=== PATIENT | male | born 1950 | race Two or more races ===

== ENCOUNTER 2025-05-19 08:51 | Outpatient (OUT) | payer MEDICARE, SELFPAY ==
--- OUTSIDE RECORDS SUMMARY | 2025-05-11 10:30 | XMS_ITS | Encounter Summary ---
Author Organization [facility] Address [address] [facility] [place] [address] Care Team Providers Care Hat Lining Blocker Name Role Phone Mell Lagos MD Primary Care Provider [phone] Tamara Tejada LPN Unavailable Mell Lagos MD Unavailable Reason for Referral * Imaging (Routine) - AuthorizedSpecialtyDiagnoses / ProceduresReferred By ContactReferred To ContactRadiology Diagnoses Intermittent atrial fibrillation (HCC) Procedures Transthoracic Echo (TTE) Complete Mell Lagos MD [address] [place] [address] Phone: tel: fax: [facility] [address] [place] [address] Phone: tel: fax: Referral IDStatusReasonStart DateExpiration DateVisits RequestedVisits [id number] Perform Procedure / Reason for Visit * ReasonCommentsDiabetesLast 7.2 Encounter Details DateTypeDepartmentCare Team (Latest Contact Info)Jqvzbeniyze92/13/2025 10:30 AM EDTOffice Visit [facility] [address] [place] [address] Mell Lagos MD [address] [address] 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 (Primary Dx); Type 2 diabetes mellitus with diabetic peripheral angiopathy without gangrene, with long-term current use of insulin (HCC); Type 2 diabetes mellitus without complication, with long-term current use of insulin (HCC); Intermittent atrial fibrillation (HCC) Social History Tobacco UseTypesPacks/DayYears UsedDateSmoking Tobacco: NeverSmokeless Tobacco: NeverAlcohol UseStandard Drinks/WeekCommentsNever0 (1 standard drink = 0.6 oz pure alcohol)B1300 Health LiteracyAnswerDate RecordedHow often do you need to have someone help you when you read instructions, pamphlets, or other written material from your doctor or pharmacy?Never08/11/2024Humiliation, Afraid, Rape, and Kick questionnaireAnswerDate RecordedWithin the last year, have you been afraid of your partner or ex-partner?No04/30/2023Within the last year, have you been humiliated or emotionally abused in other ways by your partner or ex-partner?No04/30/2023Within the last year, have you been kicked, hit, slapped, or otherwise physically hurt by your partner or ex-partner?No04/30/2023Within the last year, have you been raped or forced to have any kind of sexual activity by your partner or ex-partner?No04/30/2023Social Connection and Isolation Panel AnswerDate RecordedIn a typical week, how many times do you talk on the phone with family, friends, or neighbors?More than three times a week08/11/2024How often do you get together with friends or relatives?Once a week08/11/2024How often do you attend yarsanism or pentecostal services?Patient upipuapz18/13/2025Do you belong to any clubs or organizations such as yarsanism groups, unions, fraternal or athletic groups, or school groups?Yes08/11/2024How often do you attend meetings of the clubs or organizations you belong to?More than 4 times per year08/11/2024re you , , , , never , or living with a partner?Gtzjhaj9508/11/2024UDIT-CAnswerDate RecordedQ1: How often do you have a drink containing alcohol?Never08/11/2024Q2: How many drinks containing alcohol do you have on a typical day when you are drinking?Patient does not drink08/11/2024Q3: How often do you have six or more drinks on one occasion?Never08/11/2024Overall Financial Resource Strain (CARDIA)AnswerDate RecordedHow hard is it for you to pay for the very basics like food, housing, medical care, and heating?Not very hard08/11/2024PHQ-2AnswerDate RecordedPatient Health Questionnaire-2 [id number] [place] of Occupational Health - Occupational Stress QuestionnaireAnswerDate RecordedDo you feel stress - tense, restless, nervous, or anxious, or unable to sleep at night because your mind is troubled all the time - these days?Not at all08/11/2024Exercise Vital SignAnswerDate RecordedOn average, how many days per week do you engage in moderate to strenuous exercise (like a brisk walk)?2 days08/11/2024On average, how many minutes do you engage in exercise at this level?30 min08/11/2024Hunger Vital SignAnswerDate RecordedWithin the past 12 months, you worried that your food would run out before you got the money to buymore.Never true08/11/2024 Within the past 12 months, the food you bought just didn't last and you didn't have money to get more.Never true08/11/2024PRAPARE - TransportationAnswerDate RecordedIn the past 12 months, has lack of transportation kept you from medical appointments or from getting medications?No08/11/2024In the past 12 months, has lack of transportation kept you from meetings, work, or from getting things needed for daily living?No08/11/2024Housing Stability Vital SignAnswerDate RecordedIn the last 12 months, was there a time when you were not able to pay the mortgage or rent on time?No04/30/2023Number of Places Lived in the Last Year Not on file04/30/2023In the last 12 months, was there a time when you did not have a steady place to sleep or slept in [place] (including now)?No04/30/2023 Housing Stability Vital SignAnswerDate RecordedIn the last 12 months, was there a time when you were not able to pay the mortgage or rent on time?No08/11/2024In the past 12 months, how many times have you moved where you were living?0 08/11/2024t any time in the past 12 months, were you homeless or living in a [facility] (including now)?No08/11/2024Sex and Gender InformationValueDate Recorded Sex Assigned at BirthNot on fileLegal YcbUnec5310/11/2022 11:52 PM EDTGender IdentityNot on fileSexual OrientationNot on filedocumented as of this encounter Last Filed Vital Signs Vital SignReadingTime TakenCommentsBlood Ctqeoqrn847/8805/11/2025 10:30 AM EDT Ycvhl963105/11/2025 10:30 AM EDTTemperature--Respiratory Rate--Oxygen Saturation 97%05/11/2025 10:30 AM EDTInhaled Oxygen Concentration--Ichfpq746 kg (229 lb) 05/11/2025 10:30 AM TQBRlyvrv371.2 cm (5' 7 )05/11/2025 10:30 AM EDTBody Mass Index35.8705/11/2025 10:30 AM EDTdocumented in this encounter Functional Status * Over the past 2 weeks, how often have you been bothered by any of the following problems?QuestionAnswerDate of AssessmentAuthorLittle interest or pleasure in doing thingsNot at all05/11/2025 7:28 AM Adelaide Sesay MA Feeling down, depressed, or hopelessNot at all05/11/2025 7:28 AM Adelaide Sesay MAPatient Health Questionnaire-2 Eaiqb089 7:28 AM Adelaide Sesay MA documented as of this encounter Progress Notes * Mell Lagos MD - 05/11/2025 10:57 AM EDTAssociated Problem(s): Intermittent atrial fibrillation (HCC) Irregular HR EKG confirms Atrial Fibrillation D/W patient the need for anticoagulation Consider Metoprolol Consider Cardiology mapping/Cardioversion * Mell Lagos MD - 05/11/2025 10:54 AM EDTAssociated Problem(s): 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 HPI Diabetes Additional comments: Last 7.2 Last edited by Adelaide Almaguer MA on 05/11/2025 7:28 AM. Subjective Patient ID: Sunday Muller is a 75 y.o. male who presents for Diabetes (Last 7.2). Pt no longer itches , did see derm for this Pt sugars been avg is 135 for monthly Diabetes He presents for his follow-up diabetic visit. He has type 2 diabetes mellitus. No MedicAlert identification noted. The initial diagnosis of diabetes was made 3 years ago. His disease course has been improving. Pertinent negatives for hypoglycemia include no dizziness, headaches, nervousness/anxiousness or speech difficulty. There are no diabetic associated symptoms. Pertinent negatives for diabetes include no chest pain. There are no hypoglycemic complications. Symptoms are improving. There areno diabetic complications. Risk factors for coronary artery disease include male sex. Current diabetic treatment includes intensive insulin program and oral agent (dual therapy). He is compliant with treatment all of the time. He is following a diabetic diet. Meal planning includes avoidance of concentrated sweets. He has not had a previous visit with a dietitian. He rarely participates in exercise. His home blood glucose trend is decreasing steadily. He does not see a certified medical technician.Eye exam is current. Over the past 2 weeks, how often have you been bothered by any of the following problems? Little interest or pleasure in doing things: Not at all Feeling down, depressed, or hopeless: Not at all Patient Health Questionnaire-2 Score: 0 Current Outpatient Medications on File Prior to Visit Medication Sig Dispense Refill aspirin 81 MG chewable tablet Chew 1 tablet (81 mg) Daily 30 tablet 11 atorvastatin (Lipitor) 40 MG tablet Take 1 tablet by mouth once daily 90 tablet 0 Continuous Glucose Sensor (Dexcom G7 Sensor) misc Apply 1 Cartridge topically Daily 3 each 11 Continuous Glucose Sensor (FreeStyle Molly 3 Plus Sensor) misc 1 Device every 14 (fourteen) days 6 each 3 ezetimibe (Zetia) 10 MG tablet Take 1 tablet (10 mg) by mouth Daily 100 tablet 3 Farxiga 10 MG TAKE 1 TABLET BY MOUTH EVERY DAY FOR 90 DAYS 90 tablet 4 levothyroxine (Synthroid, Levoxyl) 50 MCG tablet Take 1 tablet (50 mcg) by mouth in the morning. Take before meals. 100 tablet 3 losartan (Cozaar) 25 MG tablet Take 1 tablet (25 mg) by mouth Daily 100 tablet 3 rivaroxaban (Xarelto) 20 MG tablet Take 1 tablet (20 mg) by mouth 1 (one) time each day at the sametime 100 tablet 3 Semaglutide,0.25 or 0.5MG/DOS, (Ozempic, 0.25 or 0.5 MG/DOSE,) 2 MG/3ML solution pen-injector INJECT 0.5MG SUBCUTANEOUSLY ONCE A WEEK 3 mL 2 [DISCONTINUED] Basaglar KwikPen 100 UNIT/ML pen DIAL AND INJECT 30 UNITS UNDER THE SKIN EVERY MORNING. MAX DAILY DOSE IS 30 UNITS. 45 mL 0 [DISCONTINUED] insulin aspart (NovoLOG FLEXPEN) 100 UNIT/ML pen Inject 8 Units under the skin in the morning and 8 Units before bedtime. [DISCONTINUED] permethrin (Elimite) 5 % cream Apply from the neck down to the soles of the feet. Rub in completely. Leave the medicine on your skin for 8 to 14 hours, then wash it off completely. Repeat in 1 week. 7 day supply. 120 g 4 No current facility-administered medications on file prior to visit. I have reviewed and reconciled the history and medication list with the patient today. Allergies Allergen Reactions Penicillin G Hives Social History Tobacco Use Smoking status: Never Smokeless tobacco: Never Substance Use Topics Alcohol use: Never Drug use: Never No family history on file. Past Medical History: Diagnosis Date Allergic Atrial fibrillation (HCC) 01/16/2023 Cataract Essential hypertension 01/16/2023 Hypercholesterolemia 01/16/2023 Hypothyroidism 01/16/2023 Peripheral vascular disease 01/16/2023 Type 2 diabetes mellitus without complication (HCC) 01/16/2023 No Tobacco use Follow ADA 1800 diet low carbohydrate Continue Med Compliance Goal LDL less than 100Goal BP 130/80 Goal HgbA1c < 7.0% Monitor Feet, monitor for infection Needs Exercise Yearly eye exams Prior to your visit today we reviewed your chart and outlined testing and treatment needed foryour care. Reviewed poissble complications of diabetes including, loss of vision, kidney failure and in Uncontrolled diabetes mellitus with hyperglycemia (HCC) 01/16/2023 Past Surgical History: Procedure Laterality Date CHOLECYSTECTOMY 2005 Visit Vitals BP 138/88 Pulse 80 Ht 5' 7 Wt 229 lb SpO2 97% BMI 35.87 kg/m?? Smoking Status Never BSA 2.22 m?? Review of Systems Constitutional: Negative for chills and fever. Respiratory: Negative for shortness of breath. Cardiovascular: Negative for chest pain. Gastrointestinal: Negative for constipation, diarrhea, nausea and vomiting. Musculoskeletal: Negative for back pain and gait problem. Neurological: Negative. Negative for dizziness, facial asymmetry, speech difficulty and headaches. Psychiatric/Behavioral: The patient is not nervous/anxious. Objective Physical Exam Vitals reviewed. Constitutional: Appearance: Normal appearance. He is obese. HENT: Head: Normocephalic. Neck: Vascular: No carotid bruit. Cardiovascular: Rate and Rhythm: Normal rate. Rhythm irregular. Pulses: Normal pulses. Pulmonary: Effort: Pulmonary effort is normal. Breath sounds: Normal breath sounds. Musculoskeletal: Right lower leg: Edema present. Left lower leg: Edema present. Skin: Comments: Chronic Venous Stasis changes Neurological: General: No focal deficit present. Mental Status: He is alert and oriented to person, place, and time. Psychiatric: Mood and Affect: Mood normal. Office Visit on 05/11/2025 Component Date Value Ref Range Status Hemoglobin A1C 05/11/2025 7.2 Final Assessment/Plan Problem List Items Addressed This Visit Intermittent atrial fibrillation (HCC) Irregular HR EKG confirms Atrial Fibrillation D/W patient the need for anticoagulation Consider Metoprolol Consider Cardiology mapping/Cardioversion Relevant Medications apixaban (Eliquis) 5 MG tablet Other Relevant Orders Transthoracic Echo (TTE) Complete Type 2 diabetes mellitus without complications (HCC) Relevant Medications insulin glargine (Basaglar KwikPen) 100 UNIT/ML pen insulin aspart (NovoLOG FLEXPEN) 100 UNIT/ML pen Type 2 diabetes mellitus with diabetic peripheral angiopathy without gangrene (HCC) Relevant Orders POCT Glycated hemoglobin, total (Completed) 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 documented in this encounter Plan of Treatment DateTypeDepartmentCare Team (Latest Contact Info)Gkcldrspzom63/13/2026 10:30 AM ESTOffice Visit [facility] [address] [facility] [address] [place] [address] Mell Lagos MD [address] [facility] [address] [place] [address] NameTypePriorityAssociated DiagnosesOrder ScheduleTransthoracic Echo (TTE) CompleteEchocardiographyRoutine Intermittent atrial fibrillation (HCC) Expected: 05/11/2025 (Approximate), Expires: 05/11/2027documented as of this encounter Procedures Procedure NamePriorityDate/TimeAssociated DiagnosisCommentsPOCT GLYCATED HEMOGLOBIN, NDDOTJhpuvzv49/13/2025 10:43 AM EDT Type 2 diabetes mellitus with diabetic peripheral angiopathy without gangrene, with long-term current use of insulin (HCC) documented in this encounter Results * (ABNORMAL) POCT Glycated hemoglobin, total (05/11/2025 10:43 AM EDT)Component ValueRef RangeTest MethodAnalysis TimePerformed AtPathologist Signature Hemoglobin A1C7.2Specimen (Source)Anatomical Location / LateralityCollection Method / VolumeCollection TimeReceived AgwoPpwoc33/13/2025 10:43 AM EDT Narrative Authorizing ProviderResult TypeResult StatusMell Lagos [facility] TEST ENTER/EDIT ORDERABLESFinal Result documented in this encounter Visit Diagnoses Diagnosis 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 [address] [place] [address] PCP - GeneralFamily Medicine01/15/23 Mell Lagos MD [address] [facility] [address] [place] [address] PCP - [place]07/30/2511 Tamara Tejada LPN [address] [facility] [address] [place] [address] 10/17/24documented as of this encounter
--- OUTSIDE RECORDS SUMMARY | 2025-05-19 08:58 | XMS_ITS | Clinical Summary ---
Author Organization [facility] Healthcare Address [address] [facility] [place] [address] Care Team Providers Care Bar Attendant Name Role Phone Mell Lagos MD Primary Care Provider [phone] Tamara Tejada LPN Unavailable Mell Lagos MD Unavailable Allergies Active AllergyReactionsCriticalityNoted DateCommentsPenicillin QSfons4201/16/2023 Medications MedicationSigDispense QuantityRefillsLast FilledStart DateEnd DateStatus rivaroxaban (Xarelto) 20 MG tablet Indications:Type 2 diabetes mellitus without complication, with long-term current use of insulin (HCC)Take 1 tablet (20 mg) by mouth 1 (one) time each day at the same time 100 tablet 4Active Farxiga 10 MG Indications:Type 2 diabetes mellitus without complications (HCC)TAKE 1 TABLET BY MOUTH EVERY DAY FOR 90 DAYS 90 tablet 4Active Continuous Glucose Sensor (FreeStyle Molly 3 Plus Sensor) [facility] Indications:Uncontrolled type 2 diabetes mellitus with hyperglycemia (HCC)1 Device every 14 (fourteen) days 6 each 5Active ezetimibe (Zetia) 10 MG tablet Indications:Type 2 diabetes mellitus without complication, with long-term current use of insulin (HCC)Take 1 tablet (10 mg) by mouth Daily 100 tablet 3045Active aspirin 81 MG chewable tablet Indications:Type 2 diabetes mellitus without complication, with long-term current use of insulin (HCC)Chew 1 tablet (81 mg) Daily 30 tablet [id number] Continuous Glucose Sensor (Dexcom G7 Sensor) [facility] Indications:Type 2 diabetes mellitus without complication, with long-term current use of insulin ([facility])Apply 1 Cartridge topically Daily 3 each 5Active levothyroxine (Synthroid, Levoxyl) 50 MCG tablet Indications:Acquired hypothyroidismTake 1 tablet (50 mcg) by mouth in the morning. Take before meals. 100 tablet 5Active losartan (Cozaar) 25 MG tablet Indications:Essential (primary) hypertensionTake 1 tablet (25 mg) by mouth Daily 100 tablet 5Active Semaglutide,0.25 or 0.5MG/DOS, (Ozempic, 0.25 or 0.5 MG/DOSE,) 2 MG/3ML solution pen-injector Indications:Type 2 diabetes mellitus without complication, unspecified whether assisted insulin use ([facility])INJECT 0.5MG SUBCUTANEOUSLY ONCE A WEEK 3 mL 5Active atorvastatin (Lipitor) 40 MG tablet Indications:HypercholesterolemiaTake 1 tablet by mouth once daily 90 tablet 5Active insulin glargine (Basaglar KwikPen) 100 UNIT/ML pen Indications:Type 2 diabetes mellitus without complication, with long-term current use of insulin ([facility])Inject 26 Units under the skin at bedtime 45 mL 5Active insulin aspart (NovoLOG FLEXPEN) 100 UNIT/ML pen Indications:Type 2 diabetes mellitus without complication, with long-term current use of insulin ([facility])Inject 10 Units under the skin in the morning and 10 Units at noon and 10 Units in the evening. Inject with meals. 10 mL 6Active apixaban (Eliquis) 5 MG tablet Indications:Intermittent atrial fibrillation (HCC)Take 1 tablet (5 mg) by mouth in the morning and 1 tablet (5 mg) before bedtime. 60 tablet 5Active Basaglar KwikPen 100 UNIT/ML pen Indications:Type 2 diabetes mellitus without complication, with long-term current use of insulin ([facility])DIAL AND INJECT 30 UNITS UNDER THE SKIN EVERY MORNING. MAX DAILY DOSE IS 30 UNITS. 45 mL Discontinued(Reorder) atorvastatin (Lipitor) 40 MG tablet Indications:HypercholesterolemiaTake 1 tablet (40 mg) by mouth Daily 90 tablet Discontinued insulin aspart (NovoLOG FLEXPEN) 100 UNIT/ML pen Indications:Type 2 diabetes mellitus without complication, with long-term current use of insulin (HCC)Inject 8 Units under the skin in the morning and 8 Units before bedtime.Discontinued(Reorder) permethrin (Elimite) 5 % cream Indications:ScabiesApply from the neck down to the soles of the feet. Rub in completely. Leave the medicine on your skin for 8 to 14 hours, then wash it off completely. Repeat in 1 week. 7 day supply. 120 g Discontinued(Therapy completed) Active Problems ProblemNoted DateDiagnosed DateBleeding from varicose veins of right lower txvptyazx36/13/2025 Assessment & Plan (05/11/2025 10:54 AM EDT): Resolved Traumatic in origin Tendonitis of left rotator cuff02/09/2025 Assessment & Plan (02/09/2025 10:46 AM EDT): Stretching exercises If NB PT Mkbfexy2211/20/2024Type 2 diabetes mellitus with diabetic peripheral angiopathy without fwmvaxgo73/14/2024 Assessment & Plan (02/09/2025 10:37 AM EDT): No Tobacco use Follow ADA 1800 diet low carbohydrate Continue Med Compliance Goal LDL less than 100Goal BP 130/80 Goal HgbA1c < 7.0% Monitor Feet, monitor for infection Needs Exercise Yearly eye exams Prior to your visit today we reviewed your chart and outlined testing and treatment needed foryour care. Reviewed poissble complications of diabetes including, loss of vision, kidney failure and increased risk of heart attacks and stroke. We made recommendations on how to control your blood sugars, and minimize your risk of these complications. We discussed your current barriers to a healthy living and importance of healthy diet and exercise. Improved Assessment & Plan (11/10/2024 8:42 AM EDT): No Tobacco use Follow ADA 1800 diet low carbohydrate Continue Med Compliance Goal LDL less than 100Goal BP 130/80 Goal HgbA1c < 7.0% Monitor Feet, monitor for infection Needs Exercise Yearly eye exams Prior to your visit today we reviewed your chart and outlined testing and treatment needed foryour care. Reviewed poissble complications of diabetes including, loss of vision, kidney failure and increased risk of heart attacks and stroke. We made recommendations on how to control your blood sugars, and minimize your risk of these complications. We discussed your current barriers to a healthy living and importance of healthy diet and exercise. Assessment & Plan (05/12/2024 9:16 AM EDT): Needs Novolog increased Other thrombophilia ([facility])05/12/2024ody mass index (BMI) 35.0-35.9, adult 05/12/2024 Assessment & Plan (08/12/2024 3:23 PM EST): Diet and Exercise Encouraged Assessment & Plan (05/12/2024 9:17 AM EDT): Exercise and Diet Chronic pruritic rash in adult05/12/2024Medicare annual wellness visit, phsbwgympq56/09/2024 Assessment & Plan (11/10/2024 8:51 AM EDT): Colonoscopy every 10 years or Cologuard every 3 years ages 50-75 Flu Vaccine yearly Pneumovax and Prevnar Mammo yearly for women and PSA yearly for men Labs/Screening yearly to rule out Diabetes, Chronic Kidney disease and liver disease Hepatitis Screen forat risk populations Shingles vaccine after65 if indicated Tetanus Vaccine every 10 years Lipids yearly under the age of 75 If Smoking history: one time CT scan of chest and Ultrasound of Aorta to screen for Anuerysm Assessment & Plan (11/06/2023 11:54 AM EDT): Colonoscopy every 10 years or Cologuard every 3 years ages 50-75 Flu Vaccine yearly Pneumovax and Prevnar Mammo yearly for women and PSA yearly for men Labs/Screening yearly to rule out Diabetes, Chronic Kidney disease and liver disease Hepatitis Screen forat risk populations Shingles vaccine after65 if indicated Tetanus Vaccine every 10 years Lipids yearly under the age of 75 If Smoking history: one time CT scan of chest and Ultrasound of Aorta to screen for Anuerysm Yuszhqgx39/09/2024 Assessment & Plan (05/12/2024 9:24 AM EDT): Cannot rule out scabies May need referral to Dermatology Assessment & Plan (02/05/2024 10:19 AM EDT): Hold Atorvastatin for 2 weeks Add Vistaril Needs better sugar control Morbid (severe) obesity due to excess zrfccasc74/06/2023 Assessment & Plan (08/12/2024 3:23 PM EST): Weight loss encouraged Assessment & Plan (05/12/2024 9:16 AM EDT): Weight loss encouraged Assessment & Plan (07/03/2023 10:41 AM EST): This is a chronic medical condition that is stable since last assessment. No changes in treatment are suggested at this time. Continue Current meds. Intermittent atrial uedidijedwvh10/20/2023 Assessment & Plan (05/11/2025 11:10 AM EDT): Irregular HR EKG confirms Atrial Fibrillation D/W patient the need for anticoagulation Consider Metoprolol Consider Cardiology mapping/Cardioversion Assessment & Plan (08/12/2024 3:23 PM EST): This is a chronic medical condition that is stable since last assessment. No changes in treatment are suggested at this time. Continue Current meds. Assessment & Plan (05/12/2024 9:27 AM EDT): On Argentinato Has not seen liquid flavor compounder Assessment & Plan (02/05/2024 10:09 AM EDT): This is a chronic medical condition that is stable since last assessment. No changes in treatment are suggested at this time. Continue Current meds. Assessment & Plan (08/06/2023 10:15 AM EST): On Xarelto This is a chronic medical condition that is stable since last assessment. No changes in treatment are suggested at this time. Continue Current meds. Assessment & Plan (07/03/2023 10:40 AM EST): Hold Xarelto 2 days before dental procedure and resume that evening Hold aspirin today No CVA sxs Assessment & Plan (06/04/2023 9:26 AM EST): No SOB No Tachycardia Assessment & Plan (05/01/2023 9:35 AM EDT): On Xarelto Assessment & Plan (01/29/2023 11:01 AM EDT): Continue Xarelto Essential zflocttbimoy83/20/2023 Assessment & Plan (11/10/2024 8:42 AM EDT): Our specific goals, for your hypertension, is to keep your blood pressure less than 140/90, and theimportance of weight control. We made recommendations on how to control your blood pressure, and minimize your risk of these copmplications. We also discussed your current barriers to a healthy living and importance of healthy diet and exercise. Prior to your visit today we have reviewed your chart and formed a plan to assist with providing you the best possible care. We reviewed the possible complications of hypertension including, stroke, heart failure and kidney impairment. In addition, we discussed your medications, the importance of taking them as prescribed. DASH diet handouts Assessment & Plan (11/06/2023 11:37 AM EDT): Our specific goals, for your hypertension, is to keep your blood pressure less than 140/90, and theimportance of weight control. We made recommendations on how to control your blood pressure, and minimize your risk of these copmplications. We also discussed your current barriers to a healthy living and importance of healthy diet and exercise. Prior to your visit today we have reviewed your chart and formed a plan to assist with providing you the best possible care. We reviewed the possible complications of hypertension including, stroke, heart failure and kidney impairment. In addition, we discussed your medications, the importance of taking them as prescribed. Scint-X handouts Assessment & Plan (08/06/2023 10:09 AM EST): Our specific goals, for your hypertension, is to keep your blood pressure less than 140/90, and theimportance of weight control. We made recommendations on how to control your blood pressure, and minimize your risk of these copmplications. We also discussed your current barriers to a healthy living and importance of healthy diet and exercise. Prior to your visit today we have reviewed your chart and formed a plan to assist with providing you the best possible care. We reviewed the possible complications of hypertension including, stroke, heart failure and kidney impairment. In addition, we discussed your medications, the importance of taking them as prescribed. Tracks.byouts Assessment & Plan (07/03/2023 10:41 AM EST): Our specific goals, for your hypertension, is to keep your blood pressure less than 140/90, and theimportance of weight control. We made recommendations on how to control your blood pressure, and minimize your risk of these copmplications. We also discussed your current barriers to a healthy living and importance of healthy diet and exercise. Prior to your visit today we have reviewed your chart and formed a plan to assist with providing you the best possible care. We reviewed the possible complications of hypertension including, stroke, heart failure and kidney impairment. In addition, we discussed your medications, the importance of taking them as prescribed. Tracks.byouts Assessment & Plan (06/04/2023 9:18 AM EST): Our specific goals, for your hypertension, is to keep your blood pressure less than 140/90, and theimportance of weight control. We made recommendations on how to control your blood pressure, and minimize your risk of these copmplications. We also discussed your current barriers to a healthy living and importance of healthy diet and exercise. Prior to your visit today we have reviewed your chart and formed a plan to assist with providing you the best possible care. We reviewed the possible complications of hypertension including, stroke, heart failure and kidney impairment. In addition, we discussed your medications, the importance of taking them as prescribed. DASH diet handouts Pure hypercholesterolemia, yolsvnrpbko44/20/2023 Assessment & Plan (08/12/2024 3:24 PM EST): This is a chronic medical condition that is stable since last assessment. No changes in treatment are suggested at this time. Continue Current meds. Assessment & Plan (05/12/2024 9:17 AM EDT): This is a chronic medical condition that is stable since last assessment. No changes in treatment are suggested at this time. Continue Current meds. Assessment & Plan (01/29/2023 10:59 AM EDT): Continue Current Meds Qhliijltakrvtu15/20/2023 Assessment & Plan (07/03/2023 10:41 AM EST): This is a chronic medical condition that is stable since last assessment. No changes in treatment are suggested at this time. Continue Current meds. Peripheral vascular disease, xsuwmhbwhqi41/20/2023 Assessment & Plan (05/12/2024 9:16 AM EDT): Needs better glycemic control Assessment & Plan (07/03/2023 10:41 AM EST): This is a chronic medical condition that is stable since last assessment. No changes in treatment are suggested at this time. Continue Current meds. Uncontrolled diabetes mellitus with roqqkcugcpptu05/20/2023 Assessment & Plan (08/12/2024 3:23 PM EST): No Tobacco use Follow ADA 1800 diet low carbohydrate Continue Med Compliance Goal LDL less than 100Goal BP 130/80 Goal HgbA1c < 7.0% Monitor Feet, monitor for infection Needs Exercise Yearly eye exams Prior to your visit today we reviewed your chart and outlined testing and treatment needed foryour care. Reviewed poissble complications of diabetes including, loss of vision, kidney failure and increased risk of heart attacks and stroke. We made recommendations on how to control your blood sugars, and minimize your risk of these complications. We discussed your current barriers to a healthy living and importance of healthy diet and exercise. Assessment & Plan (05/12/2024 9:15 AM EDT): No Tobacco use Follow ADA 1800 diet low carbohydrate Continue Med Compliance Goal LDL less than 100Goal BP 130/80 Goal HgbA1c < 7.0% Monitor Feet, monitor for infection Needs Exercise Yearly eye exams Prior to your visit today we reviewed your chart and outlined testing and treatment needed foryour care. Reviewed poissble complications of diabetes including, loss of vision, kidney failure and increased risk of heart attacks and stroke. We made recommendations on how to control your blood sugars, and minimize your risk of these complications. We discussed your current barriers to a healthy living and importance of healthy diet and exercise. Assessment & Plan (02/05/2024 10:08 AM EDT): No Tobacco use Follow ADA 1800 diet low carbohydrate Continue Med Compliance Goal LDL less than 100Goal BP 130/80 Goal HgbA1c < 7.0% Monitor Feet, monitor for infection Needs Exercise Yearly eye exams Prior to your visit today we reviewed your chart and outlined testing and treatment needed foryour care. Reviewed poissble complications of diabetes including, loss of vision, kidney failure and increased risk of heart attacks and stroke. We made recommendations on how to control your blood sugars, and minimize your risk of these complications. We discussed your current barriers to a healthy living and importance of healthy diet and exercise. Assessment & Plan (07/03/2023 10:40 AM EST): No Tobacco use Follow ADA 1800 diet low carbohydrate Continue Med Compliance Goal LDL less than 100Goal BP 130/80 Goal HgbA1c < 7.0% Monitor Feet, monitor for infection Needs Exercise Yearly eye exams Prior to your visit today we reviewed your chart and outlined testing and treatment needed foryour care. Reviewed poissble complications of diabetes including, loss of vision, kidney failure and increased risk of heart attacks and stroke. We made recommendations on how to control your blood sugars, and minimize your risk of these complications. We discussed your current barriers to a healthy living and importance of healthy diet and exercise. Assessment & Plan (06/04/2023 9:19 AM EST): Doing Mounjaro Could not get Victoza Assessment & Plan (05/01/2023 9:28 AM EDT): No Tobacco use Follow ADA 1800 diet low carbohydrate Continue Med Compliance Goal LDL less than 100Goal BP 130/80 Goal HgbA1c < 7.0% Monitor Feet, monitor for infection Needs Exercise Yearly eye exams Prior to your visit today we reviewed your chart and outlined testing and treatment needed foryour care. Reviewed poissble complications of diabetes including, loss of vision, kidney failure and increased risk of heart attacks and stroke. We made recommendations on how to control your blood sugars, and minimize your risk of these complications. We discussed your current barriers to a healthy living and importance of healthy diet and exercise. Assessment & Plan (01/29/2023 11:00 AM EDT): On Basaglar and Victoza Type 2 diabetes mellitus without owskatgjenpoz13/20/2023 Overview (11/10/2024): No Tobacco use Follow ADA 1800 diet low carbohydrate Continue Med Compliance Goal LDL less than 100Goal BP 130/80 Goal HgbA1c < 7.0% Monitor Feet, monitor for infection Needs Exercise Yearly eye exams Prior to your visit today we reviewed your chart and outlined testing and treatment needed foryour care. Reviewed poissble complications of diabetes including, loss of vision, kidney failure and increased risk of heart attacks and stroke. We made recommendations on how to control your blood sugars, and minimize your risk of these complications. We discussed your current barriers to a healthy living and importance of healthy diet and exercise. 8 to 10 units of the Novolog with meals Watch for Hypoglycemia If recurrent of episodes Hypoglycemia then decrease Basaglar Assessment & Plan (11/06/2023 11:36 AM EDT): No Tobacco use Follow ADA 1800 diet low carbohydrate Continue Med Compliance Goal LDL less than 100Goal BP 130/80 Goal HgbA1c < 7.0% Monitor Feet, monitor for infection Needs Exercise Yearly eye exams Prior to your visit today we reviewed your chart and outlined testing and treatment needed foryour care. Reviewed poissble complications of diabetes including, loss of vision, kidney failure and increased risk of heart attacks and stroke. We made recommendations on how to control your blood sugars, and minimize your risk of these complications. We discussed your current barriers to a healthy living and importance of healthy diet and exercise. Assessment & Plan (08/06/2023 10:09 AM EST): No Tobacco use Follow ADA 1800 diet low carbohydrate Continue Med Compliance Goal LDL less than 100Goal BP 130/80 Goal HgbA1c < 7.0% Monitor Feet, monitor for infection Needs Exercise Yearly eye exams Prior to your visit today we reviewed your chart and outlined testing and treatment needed foryour care. Reviewed poissble complications of diabetes including, loss of vision, kidney failure and increased risk of heart attacks and stroke. We made recommendations on how to control your blood sugars, and minimize your risk of these complications. We discussed your current barriers to a healthy living and importance of healthy diet and exercise. Assessment & Plan (01/29/2023 10:59 AM EDT): No Tobacco use Follow ADA 1800 diet low carbohydrate Continue Med Compliance Goal LDL less than 100Goal BP 130/80 Goal HgbA1c < 7.0% Monitor Feet, monitor for infection Needs Exercise Yearly eye exams Prior to your visit today we reviewed your chart and outlined testing and treatment needed foryour care. Reviewed poissble complications of diabetes including, loss of vision, kidney failure and increased risk of heart attacks and stroke. We made recommendations on how to control your blood sugars, and minimize your risk of these complications. We discussed your current barriers to a healthy living and importance of healthy diet and exercise. Encounters DateTypeDepartmentCare EvjiLysnwurwtmu70/14/2025Refill [facility] [place] [address] [address] [place] [address] Mell Lagos MD Type 2 diabetes mellitus without complication, with long-term current use of insulin ([facility])05/12/2025bstract [facility] [place] [address] [place] [address] Mell Lagos MD 05/11/2025 10:30 AM EDTOffice Visit [facility] [place] [address] [place] [address] Mell Lagos MD 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 (Primary Dx); Type 2 diabetes mellitus with diabetic peripheral angiopathy without gangrene, with long-term current use of insulin (HCC); Type 2 diabetes mellitus without complication, with long-term current use of insulin (HCC); Intermittent atrial fibrillation (HCC)05/11/20254718Ljadkk37/09/2025Patient Outreach [facility] [address] [place] [address] Tamara Tejada LPN 05/01/2025Refill [facility] [address] [place] [address] Mell Lagos MD Rmnrmocxplvzqpgzajev61/18/2025bstract [facility] [address] [place] [phone] Mell Lagos MD 04/01/2025Refill [facility] [address] [place] [address] Jayleen Mcfadden, PA Type 2 diabetes mellitus without complication, unspecified whether termite exterminator helper insulin use (HCC)03/25/2025 3:30 PM EDTOffice Visit [facility] [address] [place] [address] Lolita Anne MD Scabies (Primary Dx)03/25/2025amboo flowsheet [facility] [address] [place] [address] Lolita Anne MD 03/25/20258593Kkncar75/19/2025Telephone [facility] [address] [place] [address] Mell Lagos MD 02/17/2025bstract [facility] [address] [place] [address] Mell Lagos MD 02/16/2025bstract [facility] [address] [place] [address] Mell Lagos MD from Last 3 Months Family History RelationNameStatusCommentsFatherDeceasedMotherDeceased Social History Tobacco UseTypesPacks/DayYears UsedDateSmoking Tobacco: NeverSmokeless Tobacco: Never Tobacco Cessation:Counseling Given: Not Answered Alcohol UseStandard Drinks/WeekCommentsNever0 (1 standard drink = 0.6 [...] relatives?Once a week08/11/2024How often do you attend temple or holiness services?Patient tjbtnvan38/13/2025Do you belong to any clubs or organizations such as temple groups, unions, fraternal or athletic groups, or school groups?Yes08/11/2024How often do you attend meetings of the clubs or organizations you belong to?More than 4 times per year08/11/2024re you , , , , never , or living with a partner?Qoajxbg3108/11/2024UDIT-CAnswerDate RecordedQ1: How often do you have a [...] and heating?Not very hard08/11/2024PHQ-2AnswerDate RecordedPatient Health Questionnaire-2 Aucaz526[facility] [place] [facility] - Occupational Stress QuestionnaireAnswerDate [...] steady place to sleep or slept in [place] (including now)?No04/30/2023 Housing Stability Vital SignAnswerDate RecordedIn the last 12 months, was there a time when you were not able to pay the mortgage or rent on time?No08/11/2024In the past 12 months, how many times have you moved where you were living?0 08/11/2024t any time in the past 12 months, were you homeless or living in a snf (including now)?No08/11/2024Sex and Gender InformationValueDate Recorded Sex Assigned at BirthNot on fileLegal HanLyks0810/11/2022 11:52 PM EDTGender IdentityNot on fileSexual OrientationNot on file Last Filed Vital Signs Vital SignReadingTime TakenCommentsBlood Oftawtpk668/8805/11/2025 10:30 AM EDT Hkeka506305/11/2025 10:30 AM EDTTemperature--Respiratory Rate--Oxygen Saturation 97%05/11/2025 10:30 AM EDTInhaled Oxygen Concentration--Imlhqb583 kg (229 lb) 05/11/2025 10:30 AM DYEZpnbzr382.2 cm (5' 7 )05/11/2025 10:30 AM EDTBody Mass Index35.8705/11/2025 10:30 AM EDT Plan of Treatment DateTypeDepartmentCare Team (Latest Contact Info)Ccgjkntisfj47/13/2026 10:30 AM ESTOffice Visit [facility] [place] [facility] [address] [facility] 110 [place] [address] Mell Lagos MD [address] [facility] 110 [place] [address] Health MaintenanceDue DateLast DoneCommentsCT Lpaeicbmnhvm1952olonoscopy 1952FIT-DNA1952FIT1952FOBT1950 9875Jkirvcsipsgzy1952 Influenza Vaccine (#1)2025Diabetes: Hemoglobin A1C61, 02/09/2025, 11/05/2024, Additional history existsDiabetes: Urine Protein Vhkesgaat50/09/59503711/05/2024, 08/12/2024, 06/04/2023Medicare Annual Wellness (AWV), 4Diabetes: Retinopathy Yafhwuokz50/12/2026 4Colorectal Cancer ScreeningDiscontinuedPneumococcal Vaccine: 65+ Years Discontinued Procedures Procedure NamePriorityDate/TimeAssociated DiagnosisCommentsPOCT GLYCATED HEMOGLOBIN, UKZHBObouaxr71/13/2025 10:43 AM EDT Type 2 diabetes mellitus with diabetic peripheral angiopathy without gangrene, with long-term current use of insulin (HCC) MICROALBUMIN / CREATININE URINE EUWMONwfokre90/09/2025 9:01 AM EDT Uncontrolled type 2 diabetes mellitus with hyperglycemia (HCC) Medicare annual wellness visit, subsequent DIABETIC RETINOPATHY SCREENING - OU - BOTH RAGKJtvugtp07/12/2024 from Last 3 Months or Most Recently Relevant to Health Maintenance Results * (ABNORMAL) POCT Glycated hemoglobin, total (05/11/2025 10:43 AM EDT)Component ValueRef RangeTest MethodAnalysis TimePerformed AtPathologist Signature Hemoglobin A1C7.2Specimen (Source)Anatomical Location / LateralityCollection Method / VolumeCollection TimeReceived DhriPnyyi12/13/2025 10:43 AM EDT Narrative Authorizing ProviderResult TypeResult StatusMell Lagos MDPOINT OF CARE TEST ENTER/EDIT ORDERABLESFinal Result * Microalbumin / creatinine urine ratio (11/05/2024 9:01 AM EDT)ComponentValue Ref RangeTest MethodAnalysis TimePerformed AtPathologist SignatureCREATININE, RANDOM SHHSH9716 - 320 mg/dLQUESTALBUMIN, URINE1.0See Note: mg/dLQUESTComment: Reference Range: Reference Range Not established ALBUMIN/CREATININE RATIO, RANDOM URINE11<30 mg/g creatQUESTComment: The ADA defines abnormalities in albumin excretion as follows: Albuminuria Category ?Result (mg/g creatinine) Normal to Mildly increased <30 Moderately increased ? 30-299 Severely increased > OR = 300 The ADA recommends that at least two of three specimens collected within a 3-6 month period be abnormal before considering a patient to be within a diagnostic category. Specimen (Source)Anatomical Location / LateralityCollection Method / Volume Collection TimeReceived TimeUrineUrine specimen obtained by clean catch procedure / Ilfcmvr4111/05/2024 9:01 AM EDT11/05/2024 2:55 PM EDT Narrative [facility] - 11/06/2024 11:52 AM EDT FASTING:YES FASTING: YES Resulting Agency Comment Performing Organization Information ?Site ID: QPT ?Name: [facility] ?Address: [address] [place] [address], [address] [place] [id number] ?Director: Wicho Sargent MD Authorizing ProviderResult TypeResult StatusMell Lagos MDLAB URINE ORDERABLES Final ResultPerforming OrganizationAddressCity/State/ZIP CodePhone Number [facility] * Diabetic Retinopathy Screening - OU - Both Eyes (06/10/2024)ComponentValueRef RangeTest MethodAnalysis TimePerformed AtPathologist SignatureRESULTSnormal Anatomical RegionLateralityModalityHeadOtherSpecimen (Source)Anatomical Location / LateralityCollection Method / VolumeCollection TimeReceived Time 06/10/2024 Narrative Authorizing ProviderResult TypeResult StatusMell Lagos MDOPHTH PHOTOGRAPHY Final Result from Last 3 Months or Most Recently Relevant to Health Maintenance Insurance Care Teams Team MemberRelationshipSpecialtyStart DateEnd Date Mell Lagos MD [address] [facility] [address] [place] [address] [facility] [place]23 Mell Lagos MD [address] [facility] 110 [place] [address] PCP - Medical [facility]07/30/2511 Tamara Tejada LPN [address] [facility] 110 [place] [address] 10/17/24
--- OUTSIDE RECORDS SUMMARY | 2025-05-19 08:58 | XMS_ITS | Encounter Summary ---
Author Organization [facility] Address [address] [facility] [place] [address] Care Team Providers Care Endoscopy Registered Nurse Name Role Phone Mell Lagos MD Primary Care Provider Tamara Tejada LPN Unavailable Mell Lagos MD Unavailable Reason for Visit * ReasonCommentsMed Change Request Encounter Details DateTypeDepartmentCare Team (Latest Contact Info)Wxgnerzypgh17/14/2025Refill [facility] [place] [facility] [address] [facility] 110 [place] [phone] Mell Lagos MD [address] [facility] 110 [place] [address] Type 2 diabetes mellitus without complication, with long-term current use of insulin (HCC) Social History Tobacco UseTypesPacks/DayYears UsedDateSmoking Tobacco: [...] relatives?Once a week08/11/2024How often do you attend cheondoism or taoism services?Patient gyujnwau14/13/2025Do you belong to any clubs or organizations such as cheondoism groups, unions, fraternal or athletic groups, or school groups?Yes08/11/2024How often do you attend meetings of the clubs or organizations you belong to?More than 4 times per year08/11/2024re you , , , , never , or living with a partner?Wdidlzc6508/11/2024UDIT-CAnswerDate RecordedQ1: How often do you have a [...] and heating?Not very hard08/11/2024PHQ-2AnswerDate RecordedPatient Health Questionnaire-2 Feolv134Finalta [facility] [place] of Occupational Health - Occupational Stress QuestionnaireAnswerDate [...] steady place to sleep or slept in [facility] (including now)?No04/30/2023 Housing Stability Vital SignAnswerDate RecordedIn the last 12 months, was there a time when you were not able to pay the mortgage or rent on time?No08/11/2024In the past 12 months, how many times have you moved where you were living?0 08/11/2024t any time in the past 12 months, were you homeless or living in a fci (including now)?No08/11/2024Sex and Gender InformationValueDate Recorded Sex Assigned at BirthNot on fileLegal RmdMgbs9510/11/2022 11:52 PM EDTGender IdentityNot on fileSexual OrientationNot on filedocumented as of this encounter Plan of Treatment DateTypeDepartmentCare Team (Latest Contact Info)Ypnpbszwmbp40/13/2026 10:30 AM ESTOffice Visit [facility] [place] [facility] [address] [facility] [address] [place] [address] Mell Lagos MD [address] [facility] [address] [place] [address] documented as of this encounter Visit Diagnoses Diagnosis Type 2 diabetes mellitus without complication, with long-term current use of insulin (HCC) documented in this encounter Care Teams Team MemberRelationshipSpecialtyStart DateEnd Date Mell Lagos MD [address] [facility] [address] [place] [address] PCP - GeneralFamily Medicine01/15/23 Mell Lagos MD [address] [facility] [address] [place] [address] PCP - Medical [place]07/30/2511 Tamara Tejada LPN [address] [facility] [address] [place] [address] 10/17/24documented as of this encounter
--- OUTSIDE RECORDS SUMMARY | 2025-05-19 08:58 | XMS_ITS | Clinical Summary ---
Author Organization [employer] tem Address [id number] [address] [place] [address] Care Team Providers Care Machine Tool Technician Instructor Name Role Phone Mell Lagos MD Primary Care Provider Allergies Active AllergyReactionsCriticalityNoted JoboXudzzwxgWmjuxunvvq81/09/2024 Medications MedicationSigDispense QuantityRefillsLast FilledStart DateEnd DateStatus orphenadrine (NORFLEX) 100 mg 12 hr tablet Take 1 tablet (100 mg total) by mouth 2 (two) times a day as needed for muscle spasms. 14 tablet 10/06/2023ctive ibuprofen (MOTRIN) 800 mg tablet Take 1 tablet (800 mg total) by mouth every 6 (six) hours as needed for pain. 30 tablet 10/06/2023ctive Social History Tobacco UseTypesPacks/DayYears UsedDateSmoking Tobacco: NeverSmokeless Tobacco: Never Tobacco Cessation:Counseling Given: Not Answered Alcohol UseStandard Drinks/WeekCommentsNever0 (1 standard drink = 0.6 oz pure alcohol)ChildcareAnswerDate OndjexrgDgosejqkbHlnqxpe37/12/2019EmploymentAnswer Date RxraodcwFsykrekzdjMwobrwz51/12/2019Purpose - LifeAnswerDate RecordedPurpose and direction in vmabBhoijda16/11/2021ex and Gender InformationValueDate RecordedSex Assigned at BirthNot on fileLegal WnqWubt0103/04/2015 11:35 AM EDT Gender IdentityNot on fileSexual OrientationNot on file Last Filed Vital Signs Vital SignReadingTime TakenCommentsBlood Lrqjgzjh388/8210/06/2023 4:47 PM EST Udidt760110/06/2023 4:47 PM YFYSjklyddikzc16.6 ??C (97.8 ??F)10/06/2023 4:47 PM ESTRespiratory Xiip491010/06/2023 4:47 PM ESTOxygen Ansupoqomt17%10/06/2023 4:47 PM ESTInhaled Oxygen Concentration--Ijinja958.3 kg (230 lb)10/06/2023 4:47 PM MCCZkjxaw902.6 cm (5' 6 )10/06/2023 4:47 PM ESTBody Mass Index37.12010/06/2023 4:47 PM EST Plan of Treatment Health MaintenanceDue DateLast DoneCommentsDepression Qirqfzqqc13/04/1964Tobacco Zgslbskde86/04/1964DTaP,Tdap and Td Vaccines (1 - Tdap)12/31/1970Zoster (Shingles) Vaccine (1 of 2)12/31/2001Fall Risk Pamwicgqg72/04/2017Adult BMI Gfsppsvnp40/09/7770404COVID-19 Vaccine ( season)2025 07/06/2021, 10/28/2020, 09/30/2020Influenza Ceosghd7703/30/2025 Medical Devices Not on file Insurance Care Teams Team MemberRelationshipSpecialtyStart DateEnd Date Mell Lagos MD [facility] [place] [address] [facility]10/06/23
--- OUTSIDE RECORDS SUMMARY | 2025-05-19 08:59 | XMS_ITS | Encounter Summary ---
Author Organization [facility] Address [address] [facility] [place] [address] Care Team Providers Care Funeral Director Name Role Phone Mell Lagos MD Primary Care Provider Tamara Tejada LPN Unavailable Mell Lagos MD Unavailable Encounter Details DateTypeDepartmentCare Team (Latest Contact Info)Ytvapbbqxxn03/14/2025bstract [facility] [place] [facility] [place] [address] [place] [address] [place] [phone] Mell Lagos MD [address] [place] [address] [place], [place] [address] Social History Tobacco UseTypesPacks/DayYears UsedDateSmoking Tobacco: NeverSmokeless [...] relatives?Once a week08/11/2024How often do you attend confucianist or jew services?Patient gufznhdr06/13/2025Do you belong to any clubs or organizations such as confucianist groups, unions, fra48domain or athletic groups, or school groups?Yes08/11/2024How often do you attend meetings of the clubs or organizations you belong to?More than 4 times per year08/11/2024re you , , , , never , or living with a partner?Epxzyba3108/11/2024UDIT-CAnswerDate RecordedQ1: How often do you have a [...] and heating?Not very hard08/11/2024PHQ-2AnswerDate RecordedPatient Health Questionnaire-2 Blywr581F[facility] [place] of Occupational Health - Occupational Stress QuestionnaireAnswerDate [...] steady place to sleep or slept in [facility] (including now)?No04/30/2023 Housing Stability Vital SignAnswerDate RecordedIn the last 12 months, was there a time when you were not able to pay the mortgage or rent on time?No08/11/2024In the past 12 months, how many times have you moved where you were living?0 08/11/2024t any time in the past 12 months, were you homeless or living in a mcc (including now)?No08/11/2024Sex and Gender InformationValueDate Recorded Sex Assigned at BirthNot on fileLegal QntMejh1010/11/2022 11:52 PM EDTGender IdentityNot on fileSexual OrientationNot on filedocumented as of this encounter Plan of Treatment DateTypeDepartmentCare Team (Latest Contact Info)Eszegisetgo61/13/2026 10:30 AM ESTOffice Visit [facility] [place] [address] [facility] [address] [place] [address] Mell Lagos MD [address] [facility] 110 [place] [address] documented as of this encounter Visit Diagnoses Not on filedocumented in this encounter Care Teams Team MemberRelationshipSpecialtyStart DateEnd Date Mell Lagos MD [address] [facility] 110 [place] [address] PCP - GeneralFamily Medicine01/15/23 Mell Lagos MD [address] [facility] 110 [place] [address] PCP - Medical [place]07/30/2511 Tamara Tejada LPN [address] [address] 10/17/24documented as of this encounter
--- OUTSIDE RECORDS SUMMARY | 2025-05-19 08:59 | XMS_ITS | Encounter Summary ---
Author Organization [facility] Address [address] [facility] [place] [address] Care Team Providers Care Body Make Up Artist Name Role Phone Mell Lagos MD Primary Care Provider [phone] Tamara Tejada LPN Unavailable Mell Lagos MD Unavailable Encounter Details DateTypeDepartmentCare Team (Latest Contact Info)Lgdnfqwcans60/13/2025Travel Social History Tobacco UseTypesPacks/DayYears UsedDateSmoking Tobacco: NeverSmokeless [...] of sexual activity by your partner or ex-partner?No10/02/2023Social Connection and Isolation Panel AnswerDate RecordedIn a typical week, how many times do you talk on the phone with family, friends, or neighbors?More than three times a week08/11/2024How often do you get together with friends or relatives?Once a week08/11/2024How often do you attend latter day or cheondoism services?Patient ezfsefnc40/13/2025Do you belong to any clubs or organizations such as latter day groups, unions, fraternal or athletic groups, or school groups?Yes08/11/2024How often do you attend meetings of the clubs or organizations you belong to?More than 4 times per year08/11/2024re you , , , , never , or living with a partner?Zpveolr4508/11/2024UDIT-CAnswerDate RecordedQ1: How often do you have a [...] and heating?Not very hard08/11/2024PHQ-2AnswerDate RecordedPatient Health Questionnaire-2 Bpapd028Finencompass health [place] of Occupational Health - Occupational Stress QuestionnaireAnswerDate [...] steady place to sleep or slept in ashelter (including now)?No04/30/2023 Housing Stability Vital SignAnswerDate RecordedIn [...] Recorded Sex Assigned at BirthNot on fileLegal RyrXehy4810/11/2022 11:52 PM EDTGender IdentityNot on fileSexual OrientationNot on filedocumented as of this encounter Functional Status * Over the past 2 weeks, how often have you been bothered by any of the following problems?QuestionAnswerDate of AssessmentAuthorLittle interest or pleasure in doing thingsNot at all05/11/2025 7:28 AM Adelaide Sesay MA Feeling down, depressed, or hopelessNot at all05/11/2025 7:28 AM Adelaide Sesay MAPatient Health Questionnaire-2 Gzldp221 7:28 AM Adelaide Sesay MA documented as of this encounter Plan of Treatment DateTypeDepartmentCare Team (Latest Contact Info)Ewmodxpmsef20/13/2026 10:30 AM ESTOffice Visit [facility] [address] [facility] [address] [place] [address] Mell Lagos MD [address] [facility] [address] [place] [address] documented as of this encounter Visit Diagnoses Not on filedocumented in this encounter Care Teams Team MemberRelationshipSpecialtyStart DateEnd Date Mell Lagos MD [address] [facility] [address] [place] [address] PCP - GeneralFami Medicine01/15/23 Mell Lagos MD [address] [facility] [address] [place] [address] PCP - Medical [place]07/30/2511 Tamara Tejada LPN [address] [facility] [address] [place] [address] 10/17/24documented as of this encounter
--- OUTSIDE RECORDS SUMMARY | 2025-05-19 08:59 | XMS_ITS | Encounter Summary ---
Author Organization [facility] Healthcare Address [address] [place] [address] Care Team Providers Care Global Sales Manager Name Role Phone Mell Lagos MD Primary Care Provider [phone] Tamara Tejada LPN Unavailable Mell Lagos MD Unavailable Encounter Details DateTypeDepartmentCare Team (Latest Contact Info)Hwsurtaselt42/09/2025Patient Outreach [facility] [address] [address] Tamara Tejada LPN [address] [place] [address] [place] [address] Social History Tobacco UseTypesPacks/DayYears UsedDateSmoking Tobacco: NeverSmokeless [...] relatives?Once a week08/11/2024How often do you attend spiritism or church services?Patient adgarggd21/13/2025Do you belong to any clubs or organizations such as spiritism groups, unions, fraTeralynk or athletic groups, or school groups?Yes08/11/2024How often do you attend meetings of the clubs or organizations you belong to?More than 4 times per year08/11/2024re you , , , , never , or living with a partner?Azcnfpj0608/11/2024UDIT-CAnswerDate RecordedQ1: How often do you have a [...] and heating?Not very hard08/11/2024PHQ-2AnswerDate RecordedPatient Health Questionnaire-2 Slatr348Fint[facility] [place] of Occupational Health - Occupational Stress QuestionnaireAnswerDate [...] steady place to sleep or slept in [facility] (including now)?No04/30/2023 Housing Stability Vital SignAnswerDate RecordedIn the last 12 months, was there a time when you were not able to pay the mortgage or rent on time?No08/11/2024In the past 12 months, how many times have you moved where you were living?0 08/11/2024t any time in the past 12 months, were you homeless or living in a [place] [facility] (including now)?No08/11/2024Sex and Gender InformationValueDate Recorded Sex Assigned at BirthNot on fileLegal MyqVwfd0910/11/2022 11:52 PM EDTGender IdentityNot on fileSexual OrientationNot on filedocumented as of this encounter Progress Notes * Tamaar Tejada LPN - 05/07/2025 9:01 AM EDT Spoke with pt for outreach. Pt sates he is doing well. He has been busy setting up [facility] [place]. We discuss continuing with CCM or graduation. Pt states he would like to continue with CCM services at this time. We review/update care plan and pt agreeable. Pt tellswriter that a week or so ago his leg just started bleeding. He shares he does not know how it happened but there was a lot of blood loss. He states they ended up calling Ambulance because they could not get it to stop bleeding. He shares when ambulance came they applied pressure for about 15 minutes an told him to keep it elevated. Pt states he did not end up going to ER after and it has not happened again. [facility] I see that pt is on blood thinnerand let him know that it may have bled so much d/t being on blood thinners. Denies any needs or concerns. Encouraged to call if any arise. * Tamara Tejada LPN - 05/07/2025 9:01 AM EDT Images from the original note were not included. 05/07/2025 [place] 1950 [address] [facility] [address] Problem: HbA1C is uncontrolled Goal: Establish Regular Follow-Ups with PCP Intervention: Determine patient's next PCP visit Intervention: Discuss schedule for PCP visits with patient , Problem: Med Adherence Goal: Consistently take medications as prescribed Intervention: Educate patient and assist pt with patient assistance programs for difficult to afford medications. , and Problem: Patient is Hypertensive Goal: Remain At/Below Target Blood Pressure Intervention: Establish normal blood pressure range for patient per PCP recommendation Intervention: Discuss steps to manage BP with patient documented in this encounter Plan of Treatment DateTypeDepartmentCare Team (Latest Contact Info)Ubmapgijyrv80/13/2026 10:30 AM ESTOffice Visit [facility] [place] [address] [facility] [address] [place] [address] Mell Laogs MD [address] [facility] [address] [place] [address] documented as of this encounter Visit Diagnoses Diagnosis Type 2 diabetes mellitus without complication, with long-term current use of insulin (HCC)- Primary Essential hypertension Unspecified essential hypertension documented in this encounter Care Teams Team MemberRelationshipSpecialtyStart DateEnd Date Mell Lagos MD [address] [address] PCP - GeneralFamily Medicine01/15/23 Mell Lagos MD [address] [facility] 110 [place] [address] PCP - Medical [place]07/30/2511 Tamara Tejada LPN [address] [address] 10/17/24documented as of this encounter
--- NOTE | 2025-05-19 09:00 | CA_ITS ---
Patient Name: JOSE HDEZ MR#: [id number] : 1950 Exam Date: 05/19/2025 Ordering Doctor: DR COLTON QUINTERO M.D. ECHOCARDIOGRAM REPORT PROCEDURE: CA ECHO DOPPLER COMPLETE INDICATIONS: Atrial fibrillation, diabetes COMPARISON: None. DESCRIPTION: COMPLETE ECHOCARDIOGRAM Real-time transthoracic echocardiography with 2D, M-mode, spectral and color flow Doppler performed. QUALITY: Technical quality was adequate. LEFT VENTRICLE: Normal chamber size. Mild concentric left ventricular hypertrophy. LV EF: Global left ventricular systolic function is difficult to assess but appears reduced; visually estimated ejection fraction is 45 to 50%. Unable to assess regional wall motion abnormality; suggest contrast study for better delineation of endocardial borders. DIASTOLIC: Not adequately assessed due to heart rhythm. ATRIAL SEPTUM: Visually appears intact. LEFT ATRIUM: Severe dilatation. RIGHT ATRIUM: Mild dilatation. RIGHT VENTRICLE: Mild dilatation. Normal right ventricular systolic function. TRICUSPID VALVE: Normal mobility and thickness. No stenosis with trivial regurgitation. Unable to accurately assess right-sided pressures due to lack of measurable tricuspid regurgitation. MITRAL VALVE: Normal mobility and thickness. No evidence of mitral valve stenosis. There is no mitral annular calcification. Mild mitral regurgitation. AORTIC VALVE: Normal trileaflet appearance. No visible sclerosis. Normal leaflet mobility. No evidence of aortic valve stenosis. No aortic regurgitation. AORTIC ROOT: Normal diameter and appearance. Ascending aorta is normal in size. PULMONIC VALVE: Normal thickness and mobility. No stenosis. Trivial regurgitation. PERICARDIUM: No evidence of pericardial effusion. IVC: Collapses with inspiration. IVC is dilated (2.4 cm). CONCLUSION: 1. Global left ventricular systolic function is difficult to assess but appears reduced; visually estimated ejection fraction is 45 to 50% 2. Mild left ventricular hypertrophy 3. Right ventricle is mildly dilated; systolic function appears normal 4. Biatrial dilatation 5. Mild mitral regurgitation Adult Echocardiography Procedure Report Left Ventricle LVEDD (3.7 - 5.6 cm): 5.07 cm LVESD (2.2 - 4.0 cm): 3.56 cm LVIVS thickness (0.6 - 1.2 cm): 1.20 cm LVPW thickness (0.5 - 1.0 cm): 1.08 cm LVOT Max Gradient: 1.71 mm[Hg] LVOT Area (cm2): 0.65 m/s Peak Velocity (LVOT): 0.65 m/s LVOT Diameter 2.63 cm Left Atrium LA Volume Index (2D A2C): 48.84 ml/m2 Left Atrium Systolic Dimension: 5.07 cm Mitral Valve Mitral Valve E-Wave Peak Velocity: 0.67 m/s Right Ventricle Aorta AO Root Diam: 3.81 cm Ascending Ao Diam: 3.24 cm Aortic Valve AoV Area (Peak Sheldon): 4.81 cm2, 4.81 cm2 Peak Velocity(Antegrade Flow): 0.74 m/s Peak Gradient(Antegrade Flow): 2.17 mm[Hg] Tricuspid Valve Pulmonic Valve Peak Velocity: 0.71 m/s Peak Gradient: 1.63 mm[Hg], 2.27 mm[Hg], 1.54 mm[Hg], 2.73 mm[Hg] Right Atrium Right Atrium Systolic Pressure: 63.80 ml, 63.80 ml Dictated by: João Foote M.D. on 05/19/2025 at 12:39 Approved by: João Foote M.D. on 05/19/2025 at 12:44
== END 2025-05-19 08:52 | disposition home or self-care (01) ==
PROVIDERS: PCP Family Medicine; Visit Provider Family Medicine
DX: I48.0 Paroxysmal atrial fibrillation (principal)
CPT/HCPCS: 93306